=== PATIENT | female | born 1945 | race Caucasian/White ===

== ENCOUNTER → 2024-08-04 15:54 | Outpatient (REF) | payer OTHER, SELFPAY | LOC: RAD 15:54 | PROVIDERS: ATTENDING PHYSICIAN Student in an Organized Health Care Education/Training Program | DX: R60.0 Localized edema (principal) | CPT/HCPCS: 93971 ==

== ENCOUNTER 2024-08-04 17:09 | Emergency (ER) | payer OTHER, SELFPAY ==
[2024-08-04 17:14] VITALS: BP 176/82
--- NOTE | 2024-08-04 17:23 | ED.GENMED ---
ED Provider Triage
<Ana Laura Serrano PA-C - Last Filed: 08/04/24 17:29>
-
Patient seen by provider in Triage?: Seen in Triage
Attestation: A medical screening examination has been initiated by a qualified medical provider. Based on the assessment performed at this time, it has been determined that an emergent medical condition may exist and the patient has been informed
that further medical evaluation and possible additional diagnostic testing may be needed.
HPI: 79yoF here after a positive venous duplex study. Has been having L leg swelling x 1.5 weeks. US shows 'Proximal to mid left femoral vein, there is nonocclusive thrombus. Occlusive thrombus is present in the distal left femoral vein, within the
left popliteal vein, and within the left peroneal and posterior tibial veins. There is also an occluded gastrocnemius vein within the calf.' Sent here by PCP. Denies CP/SOB.
GENERAL: Alert , in no apparent distress
EYE: No visual abnormalities.
NECK: Trachea midline
ENT: No visible abnormalities.
LUNGS: No acute respiratory distress
NEUROLOGICAL: Alert and oriented
SKIN: Skin intact. No visible changes.
MUSCULOSKELETAL: Moving extremities normally
PSYCH: Normal and appropriate interaction.
This is a medical evaluation conducted in person to initiate diagnostic evaluation and provide initial therapeutics. Please see further documentation by the treating clinician.
CBC, CMP, and coags ordered.
History of Present Illness
<Ana Laura Serrano PA-C - Last Filed: 08/04/24 17:29>
General
Chief Complaint: Swelling
Time Seen by Provider: 08/04/24 19:05
<Louie Moreno DO - Last Filed: 08/04/24 19:29>
History of Present Illness
History of Present Illness:
Agree with history and physical by PA
Past History
<Ana Laura Serrano PA-C - Last Filed: 08/04/24 17:29>
Past History
ED Past Medical History: GERD
ED Past Surgical History: None
Social History
Tobacco: Non-smoker
Phy Exam
<Louie Moreno DO - Last Filed: 08/04/24 19:29>
Physical Exam
Physical Exam:
Physical Exam
General: no apparent distress, not acutely ill
Neck: No jaundice
Heart: s1/s2 regular rate and rhythm, no murmur. equal radial pulses.
Lungs: no acute respiratory distress. clear bilaterally
Abdomen: Nontender
Neuro: alert and oriented. no focal neurological deficits
Skin: no rash
Psychiatric: well kept. interactive and cooperative
Extremities: Swollen left lower extremity minimal warmth no cellulitic changes extremities well-perfused
Scores
<Louie Moreno DO - Last Filed: 08/04/24 19:29>
Heart Failure Risk
Heart Failure Risk Score: Not Applicable
Course
<Ana Laura Serrano PA-C - Last Filed: 08/04/24 17:29>
Orders/Labs/Results
Orders:
Orders
08/04/24 17:34
Complete Blood Count/With Diff Urgent
Comprehensive Metabolic Panel Urgent
PTT Urgent
Prothrombin Time Urgent
08/04/24 19:23
Apixaban [Eliquis] 10 mg PO NOW STA
Abnormal Lab Results
08/04/24
17:34
RBC 3.84 L 10^6/uL
(4.20-5.40)
MCH 31.8 H pg
(27.0-31.0)
MCHC 32.2 L g/dL
(33.0-37.0)
Plt Count 406 H 10^3/uL
(130-400)
Abs Immat Gran (auto) 0.1 H 10^3/uL
(0-0.05)
Potassium 5.8 H mmol/L
(3.5-5.1)
Carbon Dioxide 31 H mmol/L
(22-30)
BUN 31 H mg/dl
(7-17)
Creatinine 1.2 H mg/dL
(0.6-1.0)
Glucose 129 H mg/dl
(70-99)
08/04/24 17:34
08/04/24 17:34
Vital Signs
Initial and Last Documented VS:
Initial Vital Signs
Temp Pulse Resp BP Pulse Ox
97.6 F 80 20 176/82 99
08/04/24 17:14 08/04/24 17:14 08/04/24 17:14 08/04/24 17:14 08/04/24 17:14
Last Documented Vital Signs
Temp Pulse Resp BP Pulse Ox
97.6 F 80 20 176/82 99
08/04/24 17:14 08/04/24 17:14 08/04/24 17:14 08/04/24 17:14 08/04/24 17:14
Zohrehlt;Louie Moreno, - Last Filed: 08/04/24 19:29>
Orders/Labs/Results
Orders:
Orders
08/04/24 17:34
Complete Blood Count/With Diff Urgent
Comprehensive Metabolic Panel Urgent
PTT Urgent
Prothrombin Time Urgent
08/04/24 19:23
Apixaban [Eliquis] 10 mg PO NOW STA
Abnormal Lab Results
08/04/24
17:34
RBC 3.84 L 10^6/uL
(4.20-5.40)
MCH 31.8 H pg
(27.0-31.0)
MCHC 32.2 L g/dL
(33.0-37.0)
Plt Count 406 H 10^3/uL
(130-400)
Abs Immat Gran (auto) 0.1 H 10^3/uL
(0-0.05)
Potassium 5.8 H mmol/L
(3.5-5.1)
Carbon Dioxide 31 H mmol/L
(22-30)
BUN 31 H mg/dl
(7-17)
Creatinine 1.2 H mg/dL
(0.6-1.0)
Glucose 129 H mg/dl
(70-99)
08/04/24 17:34
08/04/24 17:34
Vital Signs
Initial and Last Documented VS:
Initial Vital Signs
Temp Pulse Resp BP Pulse Ox
97.6 F 80 20 176/82 99
08/04/24 17:14 08/04/24 17:14 08/04/24 17:14 08/04/24 17:14 08/04/24 17:14
Last Documented Vital Signs
Temp Pulse Resp BP Pulse Ox
97.6 F 80 20 176/82 99
08/04/24 17:14 08/04/24 17:14 08/04/24 17:14 08/04/24 17:14 08/04/24 17:14
<Louie Moreno DO - Last Filed: 08/04/24 19:29>
MDM/Problems Addressed
Differential Diagnosis Includes:
DVT cellulitis no signs of phlegmasia
Chronic conditions affecting care: HTN
Acute Exacerbation and/or Progression of Chronic Illness: HTN
<Louie Moreno DO - Last Filed: 08/04/24 19:29>
*Radiology
Radiology exam reviewed: radiology read reviewed
*Pulse Oximetry
Patient hypoxic: no
*Critical Care Note
Total Time (30-74mins, 75-104mins- exclusive of procedures): Not Applicable
<Louie Moreno DO - Last Filed: 08/04/24 19:29>
Update Note
Update Note:
Agree with triage PA history physical atraumatic spontaneous swelling of the left lower extremity no chest pain or shortness of breath, positive DVT, no history of DVT, drinks alcohol socially reviewed indications for anticoagulation with patient
and family
ED Attending Note
<Ana Laura Serrano PA-C - Last Filed: 08/04/24 17:29>
-
Portions of this chart may have been created with voice recognition software.� Occasional wrong word or��sound alike� substitutions may have occurred due to the inherent limitations of voice recognition software.
Discharge Plan
Departure
Patient Disposition: Home (Routine Discharge)
Date of Disposition: 08/04/24
Time of Disposition: 19:25
Patient with high blood pressure during this ER visit?: No
Condition: Good
Discharge Problem:
DVT (deep venous thrombosis)
Instructions: Deep vein thrombosis (blood clot in the leg), Deep vein thrombosis (DVT) - ED discharge instructions
Prescriptions:
New
Eliquis DVT-PE Treat 30D Start 5 mg (74 tabs) tablets,dose pack
See Rx Instructions .ROUTE .COMPLEX Qty: 74 0RF
Rx Instructions:
10 mg twice per day for 7 days, then 5 mg twice per day
No Action
losartan 50 MG tablet
50 mg PO DAILY
propranolol 20 MG tablet
60 mg PO DAILY
propranolol 80 MG capsule,extended release 24 hr
80 mg PO HS
Calcium Carb/Mag Ox/Zinc Sulf [Qem-Sch-Sutb 334-134-5 Mg Tab] 1 EACH Tablet
1 tab PO DAILY
Multigenics Without Iron
1 tab PO DAILY
Referrals:
Alvaro Cantu MD [Family Provider] - Next open appointment
Activity Restrictions/Additional Instructions:
Start Eliquis 10 mg twice a day for 7 days then 5 mg twice a day
Do not take aspirin or Motrin or Motrin like products while taking Eliquis
Return to the ER if any trauma including even mild head strikes or any abnormal bleeding
Return to the ER if chest pain or shortness of breath
Follow-up with your family doctor, discuss age-appropriate cancer screenings with him or her
Interventions
Interventions:
*General Assessment Last Done: 08/04/24 17:14
Discharge Date and Time
Print Language: AMHARIC
[2024-08-04 17:41] LABS: % Basophils 0.3 % (0-2); % Eosinophils 3.2 % (0-6); % Immature Granulocytes 0.5 % (0-0.5); % Lymphocytes 28.1 % (20.5-51.1); % Monocytes 6.6 % (1.7-9.3); % Neutrophils 61.3 % (42.2-75.2); Absolute Eosinophils 0.3 10^3/uL (0-0.7); Absolute Immature Granulocytes 0.1 10^3/uL (0-0.05); Absolute Lymphocytes 2.6 10^3/uL (1.2-3.4); Absolute Monocytes 0.6 10^3/uL (0.1-0.6); Absolute Neutrophils 5.6 10^3/uL (1.4-6.5); Hematocrit 37.9 % (37.0-47.0); Hemoglobin 12.2 g/dL (12.0-16.0); Mean Corp Hgb Conc. 32.2 g/dL (33.0-37.0); Mean Corpuscular Hgb 31.8 pg (27.0-31.0); Mean Corpuscular Volume 98.7 fL (81.0-99.0); Mean Platelet Volume 8.9 fL (7.4-10.4); Nucleated Red Blood Cells % 0 %; Platelet Count 406 10^3/uL (130-400); Red Blood Cell Count 3.84 10^6/uL (4.20-5.40); Red Cell Dist. Width 13.1 % (11.5-14.5); White Blood Cell Count 9.1 10^3/uL (4.8-10.8)
[2024-08-04 17:57] LABS: INR 0.92; PT 12.6 Sec (11.4-14.6)
[2024-08-04 18:00] LABS: ALT (SGPT) 18 U/L (0-35); AST (SGOT) 28 U/L (14-36); Albumin 4.2 g/dl (3.5-5.0); Alkaline Phosphatase 79 U/L (38-126); Blood Urea Nitrogen 31 mg/dl (7-17); Calcium 9.6 mg/dl (8.4-10.2); Carbon Dioxide 31 mmol/L (22-30); Chloride 104 mmol/L (98-107); Glucose 129 mg/dl (70-99); Potassium 5.8 mmol/L (3.5-5.1); Sodium 142 mmol/L (135-145); Total Bilirubin 0.6 mg/dl (0.2-1.3); Total Protein 6.6 g/dl (6.3-8.2); eGFR 45.48
[2024-08-04] MEDS: ELIQUIS 10 MG PO (19:49)
== END 2024-08-04 20:19 | disposition home or self-care (01) ==
LOC: EMR 17:09
PROVIDERS: Physician Assistant; EMERGENCY PHYSICIAN Emergency Medicine; FAMILY PHYSICIAN Student in an Organized Health Care Education/Training Program
DX: I82.402 Acute embolism and thrombosis of unspecified deep veins of left lower extremity (principal)
CPT/HCPCS: 99283; 80053; 85025; 85610; 85730